=== PATIENT | female | born 1975 | race African-American/Black ===

== ENCOUNTER 2021-10-08 19:41 | Emergency (ER) | payer OTHER ==
[~2021-10-08 19:41] MED LIST: FLOMAX 0.4 MG0.4 MG PO; NORCO 7.5-3251 EACH PO
[2021-10-09 02:15] LABS: BILIRUBIN NEGATIVE (NEGATIVE); BLOOD TRACE-INTACT Ery/uL (NEGATIVE); CLARITY CLEAR (CLEAR); COLOR YELLOW (YELLOW); GLUCOSE (U) NORMAL (NORMAL); LEUKOCYTES 2+ Leu/uL (NEGATIVE); NITRITE NEGATIVE (NEGATIVE); PROTEIN NEGATIVE (NEGATIVE); SPECIFIC GRAVITY 1.025 (1.001-1.030); UROBILINOGEN 0.2 mg/dL (0.2-1.0); pH 6.5 (5.0-9.0)
[2021-10-09 02:23] LABS: BACTERIA 2+; URINARY WBC 20-50
[2021-10-09 02:50] LABS: ALKALINE PHOSHATASE 124 U/L (46-116); ALT 16 U/L (14-59); AST 9 U/L (15-37); BILIRUBIN - TOTAL 0.4 mg/dL (0.2-1.0); BUN 10 mg/dL (7-18); BUN/CREAT RATIO (CALC) 13.3 RATIO; CHLORIDE 101 mmol/L (98-107); CO2 (BICARBONATE) 30 mmol/L (21-32); CREATININE 0.75 mg/dL (0.51-0.95); GLOBULIN (CALCULATION) 4.3 g/dL; GLUCOSE 98 mg/dL (74-106); LIPASE 157 U/L (73-393); POTASSIUM 3.8 mmol/L (3.5-5.1); TOTAL PROTEIN 8.3 g/dL (6.4-8.2)
[2021-10-09 03:26] LABS: BASOPHIL 0.3 % (0-2); EOSINOPHIL 2.2 % (0-5); HCT 37.6 % (37.0-47.0); HGB 12.1 g/dl (12.5-16.0); LYMPHOCYTE 50.4 % (15-48); MCH 29.7 pg (25.0-31.0); MCHC 32.2 g/dL (32.0-36.0); MCV 92.4 fL (78.0-100.0); MONOCYTE 9.3 % (0-12); MPV 9.5 fL (6.0-9.5); NEUTROPHIL 37.3 % (41-80); NRBC 0; PLT 279 K/uL (150-400); RBC 4.07 M/uL (4.20-5.40); RDW 12.3 % (11.5-14.0); WBC 5.8 K/uL (4.0-10.5)
[2021-10-09] MEDS ORDERED: CYCLOBENZAPRINE10 MG PO (05:31)
[2021-10-09] MEDS ORDERED: NORCO 5-325 TA1 EACH PO (05:31)
[2021-10-09] MEDS ORDERED: BACTRIM DS TAB1 EACH PO (05:31)
[2021-10-09] MEDS ORDERED: IBUPROFEN800 MG PO (05:31)
== END 2021-10-09 05:45 | disposition home or self-care (01) ==
LOC: FER 19:41
PROVIDERS: Emergency Medicine Emergency Medical Services
DX: S80.02XA Contusion of left knee, initial encounter (principal); S40.022A Contusion of left upper arm, initial encounter; R10.31 Right lower quadrant pain; N39.0 Urinary tract infection, site not specified; I10 Essential (primary) hypertension; V49.9XXA Car occupant (driver) (passenger) injured in unspecified traffic accident, initial encounter; Y92.410 Unspecified street and highway as the place of occurrence of the external cause
CPT/HCPCS: 36415; 71260; 72125; 80053; 81001; 83690; 84484; 85025; J1885; J2270; J2405; J2800; J7050; Q9967